=== PATIENT | male | born 1960 | race American Indian/Alaskan Native ===

== ENCOUNTER 2017-02-21 08:10 | Day surgery (SDC) | payer OTHER ==
[~2017-02-21 08:10] MED LIST: ANCEF/STERILE WATER 2 GM/20 ML 2 GM/20 ML SYRINGE IV SCH
[2017-02-21] MEDS ORDERED: QUELICIN ONE (08:23)
[2017-02-21] MEDS ORDERED: XYLOCAINE MPF 2% ONE (08:23)
[2017-02-21] MEDS ORDERED: DIPRIVAN 10 MG/ML IV ONE (08:24)
[2017-02-21] MEDS ORDERED: SUBLIMAZE ONE (08:24)
[2017-02-21] MEDS ORDERED: NACL BACTERIOSTATIC INFILTRATI ONE (08:58)
[2017-02-21] MEDS ORDERED: MORPHINE IV PRN (09:16)
--- NOTE | 2017-02-21 09:17 | Anesthesia Day of Surgery ---
Anesthesia Day of Surgery - Day of Surgery Patient Examined: Yes Patient H&P Reviewed: Yes Patient is NPO: Yes
--- NOTE | 2017-02-21 09:17 | Anesthesia Consultation ---
Anesthesia Consult and Med Hx Date of service: 02/21/17 - Airway Anesthetic Teeth Evaluation: Good ROM Head & Neck: Adequate Mental/Hyoid Distance: Adequate Mallampati Class: Class II Intubation Access Assessment: Probably Good - Pulmonary Exam CTA: Yes - Cardiac Exam Cardiac Exam: RRR - Pre-Operative Health Status ASA Pre-Surgery Classification: ASA1 Proposed Anesthetic Plan: General - Pulmonary Hx Smoking: No Hx Asthma: No Hx Sleep Apnea: No - Cardiovascular System Hx Hypertension: No - Central Nervous System Hx Psychiatric Problems: No - Endocrine Hx Non-Insulin Dependent Diabetes: No - Other Systems Hx Alcohol Use: No Hx Substance Use: No Hx Cancer: No
[2017-02-21] MEDS ORDERED: MARCAINE 0.5% 0 ML INFILTRATI ONE (09:26)
[2017-02-21] MEDS ORDERED: MARCAINE-EPI/PF 0.5%-1:200,000 INFILTRATI ONE (09:26)
[2017-02-21] MEDS ORDERED: ceFAZolin 2 GM in NACL 0.9% 100 ML IV ONE (09:30)
[2017-02-21] MEDS ORDERED: TORADOL IV PRN (09:30)
[2017-02-21] MEDS ORDERED: LACTATED RINGERS 1,000 ML IV SCH (10:00)
[2017-02-21] MEDS ORDERED: PERCOCET 5/325 PO PRN (10:00)
[2017-02-21] MEDS ORDERED: VERSED IV NR (10:00)
[2017-02-21] MEDS ORDERED: PEPCID PO NR (10:00)
[2017-02-21] MEDS ORDERED: MARCAINE-EPI 0.5%-1:200,000 INFILTRATI ONE (10:39)
[2017-02-21] MEDS ORDERED: NACL 0.9% IR ONE (10:39)
--- NOTE | 2017-02-21 11:12 | Discharge Summary ---
Short Stay Discharge Plan Activity: other (september d/c when stable. reg diet. keep dressings dry x 5 days. instruct on drain management. record I&O q 8. aleve I po q 6-8hrs prn for breakthrough pain) Weight Bearing Status: Full Weight Bearing Diet: regular Wound: keep clean and dry Follow up with: GOLDY MACK MD [Staff Physician] - 02/25/17
[2017-02-21] MEDS ORDERED: DECADRON ONE (11:33)
[2017-02-21] MEDS ORDERED: ZOFRAN ONE (11:33)
[2017-02-21 12:05] VITALS: BP 129/81
--- NOTE | 2017-02-21 16:17 | Operative Report ---
PREOPERATIVE DIAGNOSIS: Posterior neck mass. POSTOPERATIVE DIAGNOSIS: Posterior neck mass. FINDINGS: Lipomatous type mass but with no true capsule. The mass extended into the muscle fascia. The entire mass was removed en bloc. PROCEDURE: Excision of aforementioned mass. SURGEON: Paolo Siegel MD ANESTHESIA: General. ESTIMATED BLOOD LOSS: Minimal. DRAINS: One 15-Billy drain left. COMPLICATIONS: No complications. PROCEDURE IN DETAIL: The patient was taken to the operating room and placed in a prone position. Prepped and draped in usual sterile fashion. The palpable mass had been outlined with a marking pencil. A 15 blade was used to incise skin and subcutaneous tissue. A Mikael retractor was used to retract the skin. Electrocautery was used to dissect down to the mass. The mass as previously mentioned was lipomatous in nature, but had no true capsule and could not be shelled out. The mass was somewhat multilobular. Slow dissection was carried out through a sharp and blunt dissection as well as electrocautery until the mass was able to be completely removed. The mass did extend ____ areas of the muscle fascia. The area was then irrigated copiously and dried. Checked for hemostasis and noted to be dry. A 15-Billy was left draining of the empty space. The drain was secured to the skin with a 2-0 silk suture. Subcutaneous was closed with interrupted 3-0 Vicryl suture. Skin was closed with running subcuticular 4-0 Vicryl. A 0.5% Marcaine with epinephrine was infiltrated over the site for postoperative pain relief. Steri-Strips, fluffs and pressure dressings applied. The patient tolerated the procedure well and left the OR in stable condition. JOB# [id number] FLAVIO/TRIPP
== END 2017-02-21 13:15 | disposition home or self-care (01) ==
LOC: OR 08:10
PROVIDERS: ATTEND Surgery
DX: M79.89 Other specified soft tissue disorders (principal)
CPT/HCPCS: 21556; 88304; J0330; J0690; J1100; J2250; J2405; J2704; J3010; J7120; 88307